=== PATIENT | female | born 1980 | race Caucasian/White ===

== ENCOUNTER 2017-08-08 12:49 | Emergency (ER) | payer OTHER ==
[~2017-08-08] VITALS: Ht 172.7 cm; Wt 90.7 kg
[~2017-08-08 12:49] MED LIST: ACEBUTCAFT PO; ACET325 PO; ALBU90OI INH; ALBU90OI61 INH; AMOX500 PO; ASPI325EC; AZIT250 PO; CEPH500 PO; CLAR500 PO; CLIN300 PO; CRUTCH2 USE; CRUTCH3 USE; CRUTCH4 USE; CYCL10 PO; DIAZ5 PO; DOXY100 PO; HYDACE5 PO; HYDACE5325 PO; HYDGUAL120 PO; IBUP600 PO; IBUP800 PO; LIDO5TP TOP; MULVITMINE PO; Mobic15 MG PO; NAPR500 PO; NAPR550 PO; Norco 5-325 Ta1 EACH PO; ONDA4 PO; OXYACE5T PO; PERM5TC TOP; PRED10 PO; PRED20 PO; PREN-16 PO; PROACE100 PO; PROC10 PO; PROM25 PO; PROM25S PR; Permethrin60 GM TOP; RANI150 PO; RISP2; RXCYCL10 PO; RXHYDACE PO; RXPRED10 PO; RXPROACE PO; SILSUL1TC TOP; SUMA25 PO; Ultram50 MG PO; Verotin-Gr Cap1 EACH; [UNRECOGNIZED DRUG - OTHER]; [UNRECOGNIZED DRUG - OTHER]
[2017-08-08] MEDS ORDERED: Amoxicillin500 MG PO (13:18)
== END 2017-08-08 13:30 | disposition home or self-care (01) ==
LOC: ER 12:49
DX: K08.89 Other specified disorders of teeth and supporting structures (principal); F17.200 Nicotine dependence, unspecified, uncomplicated; Z88.5 Allergy status to narcotic agent; Z88.6 Allergy status to analgesic agent; Z91.041 Radiographic dye allergy status; Z88.2 Allergy status to sulfonamides; Z79.899 Other long term (current) drug therapy
CPT/HCPCS: 99282

== ENCOUNTER 2017-12-19 19:56 | Emergency (ER) | payer OTHER ==
[~2017-12-19] VITALS: Ht 172.7 cm; Wt 88.5 kg
[~2017-12-19 19:56] MED LIST changes: +Amoxicillin500 MG PO
[2017-12-19] MEDS ORDERED: Zithromax250 MG PO (21:19)
[2017-12-19] MEDS ORDERED: BENZ100A PO (21:19)
[2017-12-19] MEDS ORDERED: Prednisone20 MG PO (21:19)
[2017-12-19] MEDS ORDERED: Mucinex600 MG PO (21:19)
== END 2017-12-19 21:36 | disposition home or self-care (01) ==
LOC: ER 19:56
DX: J45.901 Unspecified asthma with (acute) exacerbation (principal); F17.200 Nicotine dependence, unspecified, uncomplicated; Z88.5 Allergy status to narcotic agent; Z88.6 Allergy status to analgesic agent; Z91.041 Radiographic dye allergy status; Z88.2 Allergy status to sulfonamides
CPT/HCPCS: 71046; 99283-25

== ENCOUNTER 2018-10-27 15:25 | Emergency (ER) | payer OTHER ==
[~2018-10-27] VITALS: Ht 172.7 cm; Wt 90.3 kg
[~2018-10-27 15:25] MED LIST changes: +BENZ100A PO; +Mucinex600 MG PO; +Prednisone20 MG PO; +Zithromax250 MG PO
[2018-10-27] MEDS ORDERED: NAPR550 PO (16:17)
== END 2018-10-27 16:32 | disposition home or self-care (01) ==
LOC: ER 15:25
DX: S90.31XA Contusion of right foot, initial encounter (principal); S90.121A Contusion of right lesser toe(s) without damage to nail, initial encounter; G43.909 Migraine, unspecified, not intractable, without status migrainosus; F17.200 Nicotine dependence, unspecified, uncomplicated; Z88.2 Allergy status to sulfonamides; W04.XXXA Fall while being carried or supported by other persons, initial encounter
CPT/HCPCS: 73630; 99283-25